=== PATIENT | male | born 1950 | race Caucasian/White ===

== ENCOUNTER 2018-05-06 08:51 | Observation (INO) | payer MEDICARE, SELFPAY ==
[2018-05-06] VITALS (12 sets, daily range): BP systolic 108–131; BP diastolic 60–94; PULSE 76–99; RESP 13–18; TEMP 36.4–36.8; O2SAT 92–97; BMI 28.0; BMI 27.3; BMI 27.4
--- NOTE | 2018-05-06 09:01 | EKG12_ITS ---
Test Reason : CP/SOB Blood Pressure : / mmHG Vent. Rate : 091 BPM Atrial Rate : 091 BPM P-R Int : 156 ms QRS Dur : 098 ms QT Int : 366 ms P-R-T Axes : 066 -23 002 degrees QTc Int : 450 ms Normal sinus rhythm Inferior infarct , age undetermined Abnormal ECG Confirmed by RITO NELSON, DAMON ([id number]), scientific editor THERESE RIVAS ([id number]) on 05/10/2018 2:58:11 PM Referred By: UNIQUE Confirmed By:DAMON VERAS MD
--- NOTE | 2018-05-06 09:11 | RAD_ITS ---
STUDY: X-RAY CHEST REASON FOR EXAM: Male, 67 years old. Chest pain. TECHNIQUE: Single AP portable view of the chest. COMPARISON: Comparison is made with prior study dated September 24, 2016. FINDINGS: EKG electrodes are seen. The lungs are clear and expanded. There is no demonstrated pleural abnormality. Normal size heart. Normal mediastinum and osvaldo. Normal visualized pulmonary arteries. There is atherosclerotic tortuosity of the aortic arch and descending thoracic aorta. Normal visualized thoracic spine. Normal visualized ribs, clavicles, and shoulders. There is no demonstrated abnormality of the visualized soft tissue structures of the upper abdomen. RAD/Chest 1 View (Portable) IMPRESSION: No acute abnormality is seen. Electronically Signed: Cisco Miranda MD at 9:48 EDT Tel [phone], Service support ,
[2018-05-06 09:15] LABS: Absolute Lymphocyte Count 0.96 X10^3/ul (0.83-4.51); Absolute Neutrophil Count 6.5 X10^3/uL (2.0-7.7); Basophil# 0.03 X10^3/uL; Basophil% 0.4 % (0-1); Eosinophil# 0.13 X10^3/uL; Eosinophils% 1.6 % (0-5); Hematocrit 37.1 % (40-54); Hemoglobin 12.1 g/dl (13.0-16.5); Lymphocyte # 0.96 X10^3/ul (4.0); Lymphocyte % 11.6 % (19-41); Mean Corp Hgb Conc 32.6 g/gl (32-36); Mean Corpuscular Hgb 29.9 pg (27.0-32.0); Mean Corpuscular Volume 91.6 fL (80-94); Mean Platelet Vol. 9.3 fl (6.2-12.0); Monocyte# 0.65 X10^3/uL; Monocyte% 7.9 % (0-10); Neutrophil % 78.4 % (47-70); Platelet Count 174 K/mm3 (150-450); RBC Distribution Width CV 13.8 % (11.6-14.6); RBC Distribution Width SD 46.2 fl (35.1-43.9); Red Blood Count 4.05 M/mm3 (4.6-6.2); White Blood Count 8.3 K/mm3 (4.4-11.0)
[2018-05-06 09:23] LABS: POSITIVE COUNT NO; POSITIVE DIFFERENTIAL NO; POSITIVE MORPHOLOGY NO
[2018-05-06] MEDS: Aspirin 81 MG TAB.CHEW 324 MG PO (09:30)
[2018-05-06 09:31] LABS: Anion Gap 10 (5-15); BUN 21 mg/dL (7-18); BUN/Creat Ratio 17.4 RATIO (10-20); Calcium,Total 9.2 mg/dL (8.5-10.1); Chloride 111 mmol/L (98-107); Creatinine, Serum 1.21 mg/dL (0.70-1.30); EST Glomerular Filtration Rate 64 mL/min (>60); Est Glom Filt Rate - Afr Amer 77 mL/min (>60); Glucose 111 mg/dL (74-106); Potassium 3.8 mmol/L (3.5-5.1); Sodium Level 142 mmol/L (136-145)
[2018-05-06] MEDS: 0.9% Normal Saline 1,000 ML 150 ML IV (09:31)
--- NOTE | 2018-05-06 10:12 | ED.VISSUMM ---
- ER Visit Summary Date of Service: 05/06/18 Chief Complaint: [Chest pain] History of Present Illness: The patient is a 67 M [chest pain presents to the emergency department with complaint of chest pain that started this morning around 7 AM.] Patient states that he had gotten up and developed sharp pain that was retrosternal and felt short of breath with it. Patient denied any radiation of the pain. He denies nausea or vomiting or diaphoresis. Patient does not had any recent travel or surgery. He has not had recent illness. Patient denies cough or fever. Patient has not had chest discomfort like this. Physical Examination: [HEENT-PERRLA, EOMI. Cranial nerves II through XII grossly intact. TMs clear. Mucous membranes moist. No adenopathy. Cardiovascular-regular rate and rhythm without murmur or ectopy Lungs-clear to auscultation, chest wall stable without crepitus or subcu emphysema Abdomen-normoactive bowel sounds, soft, nontender, no rebound or rigidity, no peritoneal signs. Extremities-intact ?4, normal range of motion, normal pulses, atraumatic Test Results: [EKG obtained on arrival showed a sinus rhythm with a ventricular rate of 91 bpm with old inferior wall infarct noted when compared with prior EKG from September 24, 2016 no significant new changes noted. CBC with differential obtained showed a white blood cell count of 8.3, hemoglobin 12, hematocrit 37, platelets 174. Chemistries unremarkable. Troponin was slightly elevated 0.063. Chest x-ray showed nothing acute. ] Emergency Department Course and Treatment: Patient received aspirin.] Treatment Plan: [Admit for further workup and evaluation.] Disposition: [Admit] Impression: [Chest pain Non-ST elevation SD] This note was generated with [employer] dictation software. It may contain incorrect words, spelling, and punctuation that were not noted in review of the chart prior to signing ED Disposition - Plan for ED Patient: Chief Complaint: Shortness of Breath Referrals: Landen Araiza MD [Primary Care Provider] -
--- NOTE | 2018-05-06 10:15 | ED.DCSUM_ITS ---
- ER Visit Summary Date of Service: 05/06/18 Chief Complaint: [Chest pain] History of Present Illness: The patient is a 67 M [chest pain presents to the emergency department with complaint of chest pain that started this morning around 7 AM.] Patient states that he had gotten up and developed sharp pain that was retrosternal and felt short of breath with it. Patient denied any radiation of the pain. He denies nausea or vomiting or diaphoresis. Patient does not had any recent travel or surgery. He has not had recent illness. Patient denies cough or fever. Patient has not had chest discomfort like this. Physical Examination: [HEENT-PERRLA, EOMI. Cranial nerves II through XII grossly intact. TMs clear. Mucous membranes moist. No adenopathy. Cardiovascular-regular rate and rhythm without murmur or ectopy Lungs-clear to auscultation, chest wall stable without crepitus or subcu emphysema Abdomen-normoactive bowel sounds, soft, nontender, no rebound or rigidity, no peritoneal signs. Extremities-intact ?4, normal range of motion, normal pulses, atraumatic Test Results: [EKG obtained on arrival showed a sinus rhythm with a ventricular rate of 91 bpm with old inferior wall infarct noted when compared with prior EKG from September 24, 2016 no significant new changes noted. CBC with differential obtained showed a white blood cell count of 8.3, hemoglobin 12, hematocrit 37, platelets 174. Chemistries unremarkable. Troponin was slightly elevated 0.063. Chest x-ray showed nothing acute. ] Emergency Department Course and Treatment: Patient received aspirin.] Treatment Plan: [Admit for further workup and evaluation.] Disposition: [Admit] Impression: [Chest pain Non-ST elevation HI] This note was generated with [employer] dictation software. It may contain incorrect words, spelling, and punctuation that were not noted in review of the chart prior to signing ED Disposition - Plan for ED Patient: Chief Complaint: Shortness of Breath Referrals: Landen Araiza MD [Primary Care Provider] -
--- NOTE | 2018-05-06 10:21 | NURSING ---
Joseph rivera RN in ER notified may transfer patient to PCU.
--- NOTE | 2018-05-06 10:24 | CM.ED ---
Social Work Note In to speak with the pt for initial assessment. Introduced self and role at [facility]. Pt reports that he lives at [facility] and does not use any DME to ambulate. Does not have C services and anticipates returning home. Would like SW to contact his cousin, Lissett (HCPOA), and let her know he is being admitted. Placed call to pt's HCPOA, Lissett, and left a vm requesting to a return phone call to update on admission. Plan: Return to [facility]. Ondina Roche, NETWORK INTELLIGENCE ANALYST, MAPPER
--- NOTE | 2018-05-06 13:01 | EKG12_ITS ---
Test Reason : ADMITTING CP EKG Blood Pressure : / mmHG Vent. Rate : 080 BPM Atrial Rate : 080 BPM P-R Int : 140 ms QRS Dur : 098 ms QT Int : 402 ms P-R-T Axes : 064 -22 005 degrees QTc Int : 463 ms Normal sinus rhythm Inferior infarct , age undetermined Abnormal ECG When compared with ECG of 24-SEP-2016 15:03, Inferior infarct is now Present Confirmed by RITO NELSON, DAMON ([id number]), science editor THERESE RIVAS ([id number]) on 05/10/2018 3:19:20 PM Referred By: PER Confirmed By:DAMON VERAS MD
--- NOTE | 2018-05-06 13:22 | PCM.HP.STD ---
Problem List (1) Chest pain Status: Acute History of Present Illness Date of Admission: 05/06/18 Chief Complaint: chest pain The patient is a 67 year old M this morning with midsternal chest pain. Patient also had some shortness of breath with it. Patient stated that he was short of breath because it was painful for him to take in a deep respiration. Patient denies any other constitutional symptoms. Patient never any chest pain like this before. Workup in the emergency room was unremarkable. Patient be admitted for further chest pain evaluation. [] Past Medical History Past Medical History (Chronic Problems): Chronic Problems Schizophrenia (Chronic) Pulmonary embolism (Chronic) right lung Hyperlipidemia (Chronic) History of tobacco use (Chronic) Anxiety and depression (Chronic) Allergies No Known Allergies Allergy (Verified 06/11/17 16:20) Home Medications: Ambulatory Orders Medication Instructions Recorded Acetaminophen [Tylenol] 500 mg PO Q6H PRN PRN 09/24/16 Cholecalciferol (Vitamin D3) 50,000 unit PO MOTH 09/24/16 [Vitamin D3] Pseudoephedrine [Sudafed] 60 mg PO Q6H PRN PRN 09/24/16 Sertraline HCl [Zoloft] 100 mg PO DAILY 09/24/16 Fenofibric Acid (Choline) 135 mg PO DAILY 03/07/17 [Trilipix] Atorvastatin Calcium [Lipitor] 20 mg PO QHS 05/06/18 Risperidone [Risperdal] 3 mg PO BID 05/06/18 Surgical History: no surgical history Psychiatric History: Schizophrenia Smoking Status: Former smoker - *Family History Maternal History Items: Cancer - Brain cancer. Paternal History Items: No pertinent history Review of Systems Constitutional: Denies: Anorexia, Chills, Fever Eyes: Denies: Blurred vision, Double vision HEENT: Denies: Head Aches, Sinus Congestion, Sinus Drainage Cardiovascular: Reports: Chest Pain. Denies: Edema Respiratory: Reports: Shortness of Breath. Denies: Cough Gastrointestinal: Denies: Abdominal Pain, Nausea, Vomiting Genitourinary: Denies: Dysuria Musculoskeletal: Denies: Joint Pain, Joint Tenderness Skin: Denies: Dryness, Jaundice Psychiatric: Denies: Anxiety, Depression Hematologic/ Lymphatic: Denies: Easy Bruising, Easy Bleeding VTE Information - Inpt Only VTE Present on Admission: No VTE Pharm Prophylaxis ordered?: Yes Patient Problems: Active and Suspected Problems Chest pain (Acute) - Physical Exam General: Alert, Cooperative, No apparent distress HEENT: Atraumatic, Normocephalic Neck: No Nodes, Thyroid Normal Size and Texture Lungs: Clear to auscultation, Normal air movement, No rhonchi, No wheeze Cardiovascular: Regular rate, Regular Rhythm, Normal S1, Normal S2, No murmurs Abdomen: Bowel Sounds Present, Soft, Non Tender, Non-Distended, No Hepato-splenomegaly Extremities: No edema, No Calf Tenderness Psych/Mental Status: Normal Affect, Appropriate Vital Signs Temp Pulse Resp BP Pulse Ox 36.4 C L 83 16 131/94 H 97 05/06/18 11:00 05/06/18 11:26 05/06/18 11:00 05/06/18 11:00 05/06/18 11:00 Oxygen Delivery Method Room Air Weight: 79.1 kg Body Mass Index (BMI) 27.3 Intake and Output for Last 24 Hours 05/04/18 05/05/18 05/06/18 23:59 23:59 23:59 Intake Total 360 / 360 Balance 360 / 360 Laboratory Tests Past 24 Hrs 05/06/18 12:05 Troponin I 0.201 H Assessment/Plan All Active Problems Chest pain (Acute) Diverticulitis (Acute) Pulmonary embolism with infarction (Resolved) 1. Chest pain Atypical Heart score of 3 Cycle troponins Nuclear stress test in the morning 2. Disease Continue with Xarelto 3. DVT prophylaxis: Patient is already on anticoagulation with Xarelto. Code Visit OBSV E&M: 75498 Initial observation care L2
--- NOTE | 2018-05-06 13:26 | HP.PCM_ITS ---
Problem List (1) Chest pain Status: Acute History of Present Illness Date of Admission: 05/06/18 Chief Complaint: chest pain The patient is a 67 year old M this morning with midsternal chest pain. Patient also had some shortness of breath with it. Patient stated that he was short of breath because it was painful for him to take in a deep respiration. Patient denies any other constitutional symptoms. Patient never any chest pain like this before. Workup in the emergency room was unremarkable. Patient be admitted for further chest pain evaluation. [] Past Medical History Past Medical History (Chronic Problems): Chronic Problems Schizophrenia (Chronic) Pulmonary embolism (Chronic) right lung Hyperlipidemia (Chronic) History of tobacco use (Chronic) Anxiety and depression (Chronic) Allergies No Known Allergies Allergy (Verified 06/11/17 16:20) Home Medications: Ambulatory Orders Medication Instructions Recorded Acetaminophen [Tylenol] 500 mg PO Q6H PRN PRN 09/24/16 Cholecalciferol (Vitamin D3) 50,000 unit PO MOTH 09/24/16 [Vitamin D3] Pseudoephedrine [Sudafed] 60 mg PO Q6H PRN PRN 09/24/16 Sertraline HCl [Zoloft] 100 mg PO DAILY 09/24/16 Fenofibric Acid (Choline) 135 mg PO DAILY 03/07/17 [Trilipix] Atorvastatin Calcium [Lipitor] 20 mg PO QHS 05/06/18 Risperidone [Risperdal] 3 mg PO BID 05/06/18 Surgical History: no surgical history Psychiatric History: Schizophrenia Smoking Status: Former smoker - *Family History Maternal History Items: Cancer - Brain cancer. Paternal History Items: No pertinent history Review of Systems Constitutional: Denies: Anorexia, Chills, Fever Eyes: Denies: Blurred vision, Double vision HEENT: Denies: Head Aches, Sinus Congestion, Sinus Drainage Cardiovascular: Reports: Chest Pain. Denies: Edema Respiratory: Reports: Shortness of Breath. Denies: Cough Gastrointestinal: Denies: Abdominal Pain, Nausea, Vomiting Genitourinary: Denies: Dysuria Musculoskeletal: Denies: Joint Pain, Joint Tenderness Skin: Denies: Dryness, Jaundice Psychiatric: Denies: Anxiety, Depression Hematologic/ Lymphatic: Denies: Easy Bruising, Easy Bleeding VTE Information - Inpt Only VTE Present on Admission: No VTE Pharm Prophylaxis ordered?: Yes Patient Problems: Active and Suspected Problems Chest pain (Acute) - Physical Exam General: Alert, Cooperative, No apparent distress HEENT: Atraumatic, Normocephalic Neck: No Nodes, Thyroid Normal Size and Texture Lungs: Clear to auscultation, Normal air movement, No rhonchi, No wheeze Cardiovascular: Regular rate, Regular Rhythm, Normal S1, Normal S2, No murmurs Abdomen: Bowel Sounds Present, Soft, Non Tender, Non-Distended, No Hepato- splenomegaly Extremities: No edema, No Calf Tenderness Psych/Mental Status: Normal Affect, Appropriate Vital Signs Temp Pulse Resp BP Pulse Ox 36.4 C L 83 16 131/94 H 97 05/06/18 11:00 05/06/18 11:26 05/06/18 11:00 05/06/18 11:00 05/06/18 11:00 Oxygen Delivery Method Room Air Weight: 79.1 kg Body Mass Index (BMI) 27.3 Intake and Output for Last 24 Hours 05/04/18 05/05/18 05/06/18 23:59 23:59 23:59 Intake Total 360 / 360 Balance 360 / 360 Laboratory Tests Past 24 Hrs 05/06/18 12:05 Troponin I 0.201 H Assessment/Plan All Active Problems Chest pain (Acute) Diverticulitis (Acute) Pulmonary embolism with infarction (Resolved) 1. Chest pain * Atypical * Heart score of 3 * Cycle troponins * Nuclear stress test in the morning 2. Disease * Continue with Xarelto 3. DVT prophylaxis: Patient is already on anticoagulation with Xarelto. Code Visit OBSV E&M: 96018 Initial observation care L2
[2018-05-06] MEDS: RisperiDONE 1 MG Tablet 3 MG PO (21:45)
[2018-05-07] VITALS (9 sets, daily range): BP systolic 115–132; BP diastolic 65–83; PULSE 75–105; RESP 16–19; TEMP 36.4–37.1; O2SAT 92–95
--- NOTE | 2018-05-07 05:55 | EKG12_ITS ---
Test Reason : AM EKG Blood Pressure : / mmHG Vent. Rate : 078 BPM Atrial Rate : 078 BPM P-R Int : 140 ms QRS Dur : 098 ms QT Int : 414 ms P-R-T Axes : 063 -18 010 degrees QTc Int : 471 ms Normal sinus rhythm Right atrial enlargement Inferior infarct , age undetermined Abnormal ECG Confirmed by RITO NELSON, DAMON ([id number]), film editor supervisor THERESE RIVAS ([id number]) on 05/10/2018 3:16:32 PM Referred By: PER Confirmed By:DAMON VERAS MD
[2018-05-07] MEDS: Aspirin E.C. 81 MG Tablet PO (06:02)
[2018-05-07 06:18] LABS: Absolute Lymphocyte Count 1.46 X10^3/ul (0.83-4.51); Absolute Neutrophil Count 6.3 X10^3/uL (2.0-7.7); Basophil# 0.03 X10^3/uL; Basophil% 0.3 % (0-1); Eosinophil# 0.19 X10^3/uL; Eosinophils% 2.2 % (0-5); Hematocrit 34.9 % (40-54); Hemoglobin 11.5 g/dl (13.0-16.5); Lymphocyte # 1.46 X10^3/ul (4.0); Lymphocyte % 16.6 % (19-41); Mean Corpuscular Hgb 30.3 pg (27.0-32.0); Mean Corpuscular Volume 92.1 fL (80-94); Mean Platelet Vol. 9.7 fl (6.2-12.0); Monocyte# 0.82 X10^3/uL; Monocyte% 9.3 % (0-10); Neutrophil % 71.5 % (47-70); POSITIVE COUNT NO; POSITIVE DIFFERENTIAL NO; POSITIVE MORPHOLOGY NO; Platelet Count 194 K/mm3 (150-450); RBC Distribution Width CV 13.5 % (11.6-14.6); RBC Distribution Width SD 44.7 fl (35.1-43.9); Red Blood Count 3.79 M/mm3 (4.6-6.2); White Blood Count 8.8 K/mm3 (4.4-11.0)
[2018-05-07 06:22] LABS: International Normalized Ratio 1.2; Prothrombin Time (Protime)PT. 15.3 SECONDS (11.7-14.9)
[2018-05-07 06:23] LABS: Partial Thromboplast Time 35.4 Seconds (24.1-36.2)
[2018-05-07 06:34] LABS: Anion Gap 9 (5-15); BUN 24 mg/dL (7-18); BUN/Creat Ratio 20.9 RATIO (10-20); Calcium,Total 8.9 mg/dL (8.5-10.1); Chloride 110 mmol/L (98-107); Cholesterol 138 mg/dL (200); Creatinine, Serum 1.15 mg/dL (0.70-1.30); EST Glomerular Filtration Rate 68 mL/min (>60); Est Glom Filt Rate - Afr Amer 82 mL/min (>60); Estimated Creatinine Clearance 57.79 ml/min; Glucose 87 mg/dL (74-106); High Density Lipoprotein 64 mg/dL; Potassium 3.9 mmol/L (3.5-5.1); Sodium Level 142 mmol/L (136-145); Triglycerides 92 mg/dL; Very Low Density Lipoprotein 18 mg/dL (5-40)
[2018-05-07] MEDS: RisperiDONE 1 MG Tablet 3 MG PO (09:41)
[2018-05-07] MEDS: Fenofibrate 145 MG Tablet PO (09:41)
[2018-05-07] MEDS: Sertraline 100 MG Tablet 200 MG PO (09:41)
--- NOTE | 2018-05-07 10:29 | STRESSREP_ITS ---
Stress Test Report Pharmacologic myocardial perfusion stress test. 67-year-old man with a history of chest pain. Stress protocol: Resting EKG demonstrates normal sinus rhythm with a rate of 79 bpm normal intervals and noted resting blood pressure is 130/88 mmHg. 0.4 mg of regadenoson was infused per usual protocol followed by Intravenous saline flush injection continuous EKG monitoring was performed. At rest there were no ST or T-wave changes noted suggest abnormal flow reserve at peak infusion no ST or T- wave changes were noted suggest abnormal flow reserve. During post infusion there was a period of ventricular quadrigeminy noted. The resting blood pressure was 130/88 with a peak blood pressure 152/88 mmHg. Myocardial perfusion protocol. 11.9 mCi of technetium 99m sestamibi was injected at rest. 0.4 mg of regadenoson was infused per usual protocol peak infusion 34.1 mCi of technetium 99m sestamibi was injected stress images were obtained stress and rest images were reconstructed and compared in the short axis vertical long and horizontal long axis. Gated images were also obtained Perfusion SPECT analysis: Review of the stress images demonstrate normal uptake of tracer noted in all areas of the myocardium. The resting images similarly demonstrate normal uptake of tracer noted in all areas of the myocardium. No areas of reversibility are noted suggest ischemia and no previous infarct is noted. Gated SPECT analysis: The gated ejection fraction is noted to be 84%. Conclusion: Normal pharmacologic myocardial perfusion stress test. Preserved ejection fraction.
--- NOTE | 2018-05-07 11:25 | CASEMGMT ---
Addendum entered by Tahmina Baer 05/07/18 12:07: SW spoke w/pt, confirmed the discharge plan is for pt to return to assisted living when ready. Pt states that when he is ready to return he will need transport set up. SW spoke w/Thierry Caldwell at the [facility], faxed updates and let him know pt may be ready to return today, or possibly tomorrow. SW explained will let him know once SW knows from physician. SW will continue to follow. GAETANO Mccormack, RAYMOND Original Note: Pt may be ready to discharge back to [facility] today. SW called Thierry Jones, director of the [facility], message left letting him know pt may be ready to return today. SW will continue to follow. GAETANO Mccormack, TRADE MARKER
[2018-05-07 12:51] LABS: D-Dimer Quantitative (DVT/PE) 18.31 FEU/ug/m (0.27-0.49)
--- NOTE | 2018-05-07 13:42 | CT_ITS ---
STUDY: CTA CHEST REASON FOR EXAM: Male, 67 years old. Chest pain and shortness of breath. RADIATION DOSAGE (If Supplied By Facility): CTDIvol = ( 24.7 ) mGy, DLP = ( 647.24 ) mGycm TECHNIQUE: The examination was performed with the intravenous administration of 100 ml of Isovue 370 contrast material. Post-processing of the angiographic images was performed, with multiplanar reformation and 3D reconstruction. Individualized dose optimization techniques were used for this CT. COMPARISON: Comparison is made to prior study dated March 08, 2017. FINDINGS: There is evidence of multiple intraluminal filling defects in the distal portions of the right and left pulmonary arteries as well as branches in the upper and lower lobes bilaterally in keeping with diffuse bilateral pulmonary emboli. Normal thoracic aorta and visualized great vessels. There is no demonstrated aortic dissection. Normal heart and pericardium. Normal mediastinum. Normal hilar regions. Normal visualized trachea and bronchi. The lungs are well expanded. Mild degree of increased markings at the lung bases just a minimal bibasilar atelectasis slightly more prominent on the left side. Normal pleura. Normal chest wall structures. Normal osseous structures. Normal visualized upper abdomen. CT/CTA Chest W/WO Contrast IMPRESSION: Multiple bilateral pulmonary emboli. Electronically Signed: Cisco Miranda MD at 14:47 EDT Tel [phone], Service support ,
--- NOTE | 2018-05-07 13:45 | PN_ITS ---
Patient Problems: Active and Suspected Problems Chest pain (Acute) Subjective: No further chest pain. No shortness of breath. Vitals/I&O's: Vital Signs Temp Pulse Resp BP Pulse Ox 36.7 C 82 18 132/81 H 95 05/07/18 09:40 05/07/18 11:26 05/07/18 09:40 05/07/18 09:40 05/07/18 09:40 Oxygen Delivery Method Room Air Weight: 79.1 kg Body Mass Index (BMI) 27.3 Intake and Output for Last 24 Hours 05/05/18 05/06/18 05/07/18 23:59 23:59 23:59 Intake Total 1020 / 1020 480 / 480 Output Total 480 / 480 Balance 1020 / 1020 0 / 0 General: Alert, No apparent distress HEENT: Atraumatic, Normocephalic Oral: Moist Mucosa, No Gingival or Mucosal Lesions/ Ulcerations Neck: No Nodes, Thyroid Normal Size and Texture Lungs: Clear to auscultation, Normal air movement, No rhonchi, No wheeze Cardiovascular: Regular rate, Regular Rhythm, Normal S1, Normal S2 Abdomen: Bowel Sounds Present, Soft, Non Tender, Non-Distended Extremities: No edema, Capillary Refill Less than 3 Seconds Laboratory Results 05/06/18 14:35: Troponin I 0.216 H 05/07/18 05:35: Sodium 142, Potassium 3.9, Chloride 110 H, Carbon Dioxide 23.0, Anion Gap 9, BUN 24 H, Creatinine 1.15, Estim Creat Clear Calc 57.79, Est GFR ( MDRD) Af Amer 82, Est GFR (MDRD) Non-Af 68, BUN/Creatinine Ratio 20.9 H, Glucose 87, Calcium 8.9, Triglycerides 92, Cholesterol 138, LDL Cholesterol 56, VLDL Cholesterol 18, HDL Cholesterol 64 05/07/18 05:35: WBC 8.8, RBC 3.79 L, Hgb 11.5 L, Hct 34.9 L, MCV 92.1, MCH 30.3 , MCHC 33.0, RDW 13.5, RDW Differential 44.7 H, Plt Count 194, MPV 9.7, Immature Gran % (Auto) 0.100, Neut % (Auto) 71.5 H, Lymph % (Auto) 16.6 L, Bibb % (Auto) 9.3, Eos % (Auto) 2.2, Baso % (Auto) 0.3, Absolute Neuts (auto) 6.3, Absolute Lymphs (auto) 1.46, Total Counted Not Reportable 05/07/18 05:35: PT 15.3 H, INR 1.2, APTT 35.4 05/07/18 05:35: D-Dimer Quant (PE/DVT) 18.31 H* Current Medications Acetaminophen (Tylenol) 500 mg PO Q6H PRN PRN PRN Reason: PAIN Aspirin (Ecotrin) 81 mg PO DAILY@0800 [facility] Last Admin: 05/07/18 06:02 Dose: 81 mg Enoxaparin Sodium (Lovenox) 40 mg SC DAILY@1000 [facility] Last Admin: 05/07/18 13:04 Dose: Not Given Ergocalciferol (Vitamin D) 50,000 unit PO QMONTH [facility] Fenofibrate (Tricor) 145 mg PO DAILYCM [facility] Last Admin: 05/07/18 09:41 Dose: 145 mg Magnesium Hydroxide (Milk Of Magnesia) 30 ml PO DAILY PRN PRN Reason: Constipation Nitroglycerin (Nitrostat) 0.4 mg SUBLINGUAL Q5M PRN PRN Reason: CHEST PAIN Risperidone (Risperdal) 3 mg PO BID [facility] Last Admin: 05/07/18 09:41 Dose: 3 mg Sertraline HCl (Zoloft) 200 mg PO DAILY [facility] Last Admin: 05/07/18 09:41 Dose: 200 mg Tramadol HCl (Ultram) 100 mg PO Q6H PRN PRN Reason: MODERATE PAIN (4-5/10) Medical Necessity - Tobacco Use Smoking Status: Former smoker Assessment/Plan All Active Problems Chest pain (Acute) Diverticulitis (Acute) Pulmonary embolism with infarction (Resolved) 1. Chest pain * Atypical * Heart score of 3 * Troponins went as high as 0.216 * Stress test negative * D-dimer was 18.3 * Patient does have a history of venous thromboembolic disease but is not currently on anticoagulation though it was initially on his med rec * Will check CT angiogram of the chest Code Visit OBSV E&M: 36062 Subsequent observation care L2
[2018-05-07] MEDS: 0.9% Normal Saline 1,000 ML 150 ML IV (14:58)
--- NOTE | 2018-05-07 15:42 | CASEMGMT ---
This RN STEFFEN to room with GUTIERREZ form at this time. Explanation done, pt voices understanding and pt signed form at this time. Pt voices no further concerns/needs at this time. Original to chart and copy to be sent home with pt. Lou SANTOYO CM
--- NOTE | 2018-05-07 15:50 | CASEMGMT ---
Pt may be ready today for discharge. [facility] faxed updated clinical information to [facility], called and left a message for Dmitry Caldwell, director of [facility] to let him know pt may return yet today. Green sheet w/transport forms placed on chart in event pt is able to return today or at some point on the weekend. GAETANO Mccormack, OUTBOARD MOTOR INSPECTOR
--- NOTE | 2018-05-07 16:05 | PCM.DC ---
- Discharge Diagnoses Current Active Problems: Current Active and Chronic Problems Chest pain (Acute) You will use the following diet at home:: No restrictions Your food should be the consistency of: Regular Discharge Activity: Return to Normal Activity Call your doctor if you observe: Fever of 101 or Higher, Shortness of breath, Chest pain Allergies/Adverse Reactions: Allergies No Known Allergies Allergy (Verified 06/11/17 16:20) Medications to take at Discharge Acetaminophen [Tylenol] 500 mg PO Q6H PRN PRN 09/24/16 Cholecalciferol (Vitamin D3) [Vitamin D3] 50,000 unit PO MOTH 09/24/16 Pseudoephedrine [Sudafed] 60 mg PO Q6H PRN PRN 09/24/16 Sertraline HCl [Zoloft] 200 mg PO DAILY 09/24/16 Fenofibric Acid (Choline) [Trilipix] 135 mg PO DAILY 03/07/17 Atorvastatin Calcium [Lipitor] 20 mg PO QHS 05/06/18 Risperidone [Risperdal] 3 mg PO BID 05/06/18 Rivaroxaban [Xarelto] 15 mg PO BIDCM #41 tab 05/07/18 Rivaroxaban [Xarelto] 20 mg PO DAILY #30 tab 05/07/18 The following prescriptions were given: Rivaroxaban [Xarelto] 20 mg PO DAILY #30 tab Rivaroxaban [Xarelto] 15 mg PO BIDCM #41 tab Primary Care Physician: Landen Araiza MD [Primary Care Provider] - Within 2 Weeks Proposed Discharge Date: 05/07/18
--- NOTE | 2018-05-07 16:06 | PCM.DC.SUM ---
Discharge Date and Diagnosis - Problem List Patient Problems: Active and Suspected Problems Pulmonary emboli (Acute) Chest pain (Acute) Date of Admission: 05/06/18 Date of Discharge: 05/07/18 - Primary Discharge Diagnosis Active and Suspected Problems Pulmonary emboli (Acute) Chest pain (Acute) - Secondary Discharge Diagnosis Chronic Problems Schizophrenia (Chronic) Pulmonary embolism (Chronic) right lung Hyperlipidemia (Chronic) History of tobacco use (Chronic) Anxiety and depression (Chronic) Hospital Course and Treatment Imaging Results: 05/07/18 13:42 CTA Chest W/WO Contrast [CT] Urgent Clinical Impression(s) from Imaging Studies Chest X-Ray 05/06/18 09:11 IMPRESSION: No acute abnormality is seen. Electronically Signed: Cisco Miranda MD at 9:48 EDT Tel [phone], Service support , Chest CTA 05/07/18 13:42 IMPRESSION: Multiple bilateral pulmonary emboli. Electronically Signed: Cisco Miranda MD at 14:47 EDT Tel [phone], Service support , Operations: None Procedures: Stress test Summary of Care Provided: The patient is a 67 year old M with atypical chest pain. Patient underwent cardiac workup and was found to have troponin of 0.2. Stress test was negative, however. Patient had a d-dimer that was elevated at 18. Patient underwent a CT angiogram of the chest that showed bilateral pulmonary emboli. Patient has had a history of pulmonary emboli and had been on Xarelto for that but was stopped. Patient will be resumed on the Xarelto starting at the 50 mg twice daily for 3 weeks and then 20 mg daily thereafter. Given that this is the patient's second blood clot patient is going to require lifelong anticoagulation. [] Discharge Diet: No Restrictions Discharge Activity: Return to Normal Activity Call your doctor if you observe: Fever of 101 or Higher, Shortness of breath, Chest pain Home Medications: Medications to take at Discharge Acetaminophen [Tylenol] 500 mg PO Q6H PRN PRN 09/24/16 Cholecalciferol (Vitamin D3) [Vitamin D3] 50,000 unit PO MOTH 09/24/16 Pseudoephedrine [Sudafed] 60 mg PO Q6H PRN PRN 09/24/16 Sertraline HCl [Zoloft] 200 mg PO DAILY 09/24/16 Fenofibric Acid (Choline) [Trilipix] 135 mg PO DAILY 03/07/17 Atorvastatin Calcium [Lipitor] 20 mg PO QHS 05/06/18 Risperidone [Risperdal] 3 mg PO BID 05/06/18 Rivaroxaban [Xarelto] 15 mg PO BIDCM #41 tab 05/07/18 Rivaroxaban [Xarelto] 20 mg PO DAILY #30 tab 05/07/18 Following Prescrptions Were Given to Patient: Rivaroxaban [Xarelto] 20 mg PO DAILY #30 tab Rivaroxaban [Xarelto] 15 mg PO BIDCM #41 tab Primary Care Physician: Landen Araiza MD [Primary Care Provider] - Within 2 Weeks Disposition: Home Minutes spent on discharge:: 30 Patient Condition:: Good Medical Necessity - Tobacco Use Smoking Status: Former smoker Meaningful Use Info Meaningful Use Diagnoses (Choose all that apply): None applicable Code Visit OBSV E&M: 54975 Observation care discharge
--- NOTE | 2018-05-07 16:09 | DS.PCM_ITS ---
Discharge Date and Diagnosis - Problem List Patient Problems: Active and Suspected Problems Pulmonary emboli (Acute) Chest pain (Acute) Date of Admission: 05/06/18 Date of Discharge: 05/07/18 - Primary Discharge Diagnosis Active and Suspected Problems Pulmonary emboli (Acute) Chest pain (Acute) - Secondary Discharge Diagnosis Chronic Problems Schizophrenia (Chronic) Pulmonary embolism (Chronic) right lung Hyperlipidemia (Chronic) History of tobacco use (Chronic) Anxiety and depression (Chronic) Hospital Course and Treatment Imaging Results: 05/07/18 13:42 CTA Chest W/WO Contrast [CT] Urgent Clinical Impression(s) from Imaging Studies Chest X-Ray 05/06/18 09:11 IMPRESSION: No acute abnormality is seen. Electronically Signed: Cisco Miranda MD at 9:48 EDT Tel [phone], Service support , Chest CTA 05/07/18 13:42 IMPRESSION: Multiple bilateral pulmonary emboli. Electronically Signed: Cisco Miranda MD at 14:47 EDT Tel [phone], Service support , Operations: None Procedures: Stress test Summary of Care Provided: The patient is a 67 year old M with atypical chest pain. Patient underwent cardiac workup and was found to have troponin of 0.2. Stress test was negative , however. Patient had a d-dimer that was elevated at 18. Patient underwent a CT angiogram of the chest that showed bilateral pulmonary emboli. Patient has had a history of pulmonary emboli and had been on Xarelto for that but was stopped. Patient will be resumed on the Xarelto starting at the 50 mg twice daily for 3 weeks and then 20 mg daily thereafter. Given that this is the patient's second blood clot patient is going to require lifelong anticoagulation. [] Discharge Diet: No Restrictions Discharge Activity: Return to Normal Activity Call your doctor if you observe: Fever of 101 or Higher, Shortness of breath, Chest pain Home Medications: Medications to take at Discharge Acetaminophen [Tylenol] 500 mg PO Q6H PRN PRN 09/24/16 Cholecalciferol (Vitamin D3) [Vitamin D3] 50,000 unit PO MOTH 09/24/16 Pseudoephedrine [Sudafed] 60 mg PO Q6H PRN PRN 09/24/16 Sertraline HCl [Zoloft] 200 mg PO DAILY 09/24/16 Fenofibric Acid (Choline) [Trilipix] 135 mg PO DAILY 03/07/17 Atorvastatin Calcium [Lipitor] 20 mg PO QHS 05/06/18 Risperidone [Risperdal] 3 mg PO BID 05/06/18 Rivaroxaban [Xarelto] 15 mg PO BIDCM #41 tab 05/07/18 Rivaroxaban [Xarelto] 20 mg PO DAILY #30 tab 05/07/18 Following Prescrptions Were Given to Patient: Rivaroxaban [Xarelto] 20 mg PO DAILY #30 tab Rivaroxaban [Xarelto] 15 mg PO BIDCM #41 tab Primary Care Physician: Landen Araiza MD [Primary Care Provider] - Within 2 Weeks Disposition: Home Minutes spent on discharge:: 30 Patient Condition:: Good Medical Necessity - Tobacco Use Smoking Status: Former smoker Meaningful Use Info Meaningful Use Diagnoses (Choose all that apply): None applicable Code Visit OBSV E&M: 70518 Observation care discharge
[2018-05-07] MEDS: Rivaroxaban 15 MG Tablet PO (16:36)
--- NOTE | 2018-05-07 16:46 | NURSING ---
Called report to [facility] De Los Santos. Spoke with YARELIS Mann at this time.
--- NOTE | 2018-05-07 18:57 | PCM.PN.BLA ---
Progress Note CODE DANNIELLE note: Jillian ram was called and I responded immediately, on my arrival he was unresponsive and pulseless laying supine on the floor. CPR was initiated and we followed the ACLS protocol for resuscitation. He was intubated with a 7.5 ET tube on the second attempt after visualizing his cords with a laryngoscope #4. 3 rounds of epi and given bicarbonate x3. He remained asystolic and pulseless, code was called at 1440 5 PM , he was pronounced at 16:45.
--- NOTE | 2018-05-07 19:40 | NURSING ---
Patient's POA Lissett Brooke was called at [phone]. A different family member answered the phone and stated that Lissett has left the house for the evening. Family member unaware of Lissett's cell phone number without using the speed dial on her phone. Family member was able to write down [facility] number and tell Lissett to give us a call back as soon as possible.
== END 2018-05-07 18:45 ==
LOC: ED 09:41 → PCU 10:39
PROVIDERS: Emergency Provider Emergency Medicine; Family Provider Family Medicine; PCP Family Medicine
DX: I26.99 Other pulmonary embolism without acute cor pulmonale (principal); I46.9 Cardiac arrest, cause unspecified; Z87.891 Personal history of nicotine dependence; F41.9 Anxiety disorder, unspecified; F32.9 Major depressive disorder, single episode, unspecified; Z79.899 Other long term (current) drug therapy; F20.9 Schizophrenia, unspecified; E78.5 Hyperlipidemia, unspecified
CPT/HCPCS: 36415; 71045; 71275; 78452; 80048; 80061; 84484; 85025; 85379; 85610; 85730; 93005; 93017; 96360; 96361; 99218; 99285; A9500; J7030; Q9967; A4216; G0378; J2310; J2785